=== PATIENT | female | born 1990 | race Caucasian/White ===

== ENCOUNTER 2023-05-26 09:19 | Emergency (ER) | payer BC ==
[~2023-05-26] VITALS: Ht 172.7 cm; Wt 54.4 kg
[2023-05-26 09:32] VITALS: TEMP 98.2
[2023-05-26] MEDS ORDERED: LIDOCAINE 5% (PATCH) 1 EA PATCH TP SCH (10:30)
[2023-05-26] MEDS ORDERED: HYDROCODONE/APAP 5/325MG TABLET PO ONE (10:30)
[2023-05-26] MEDS ORDERED: LIDOCAINE 5% (PATCH) 1 EA PATCH TP ONE (11:19)
[2023-05-26] MEDS ORDERED: HYDROCODONE/APAP 5/325MG TABLET ONE (11:20)
[2023-05-26] MEDS ORDERED: IBUP-1957 PO (12:49)
[2023-05-26] MEDS ORDERED: HYDR-4209 PO (12:49)
[2023-05-26 13:08] VITALS: BP 125/60; O2SAT 99
== END 2023-05-26 13:09 | disposition home or self-care (01) ==
LOC: ER 09:19
DX: R07.81 Pleurodynia (principal); R05.9 Cough, unspecified; Z79.899 Other long term (current) drug therapy
CPT/HCPCS: 71100-TC